=== PATIENT | male | born 1990 | race American Indian/Alaskan Native ===

== ENCOUNTER 2017-02-02 03:49 | Emergency (ER) | payer OTHER ==
[2017-02-02 05:05] LABS: Basophils % (Auto) 0.4 % (0.0-1.8); Eosinophils % (Auto) 0.5 % (0.0-4.3); Hemoglobin 14.5 gm/dl (11.8-15.2); Mean Corpuscular HGB Conc 32 % (32-34); Mean Corpuscular Volume 76 fl (84-94); Platelet Count 252 K/mm3 (140-440); Red Blood Count 6.05 M/mm3 (3.65-5.03); Red Cell Distribution Width 13.8 % (13.2-15.2); White Blood Count 10.7 K/mm3 (4.5-11.0)
[2017-02-02 05:11] LABS: Mean Corpuscular Hemoglobin 24 pg (28-32)
[2017-02-02 05:24] LABS: Anion Gap 17 mmol/L; BUN/Creatinine Ratio 8.88; Blood Urea Nitrogen 8 mg/dL (9-20); Calcium 9.3 mg/dL (8.4-10.2); Carbon Dioxide 28 mmol/L (22-30); Chloride 103.4 mmol/L (98-107); Glucose 84 mg/dL (75-100); Potassium 4.1 mmol/L (3.6-5.0); Sodium 144 mmol/L (137-145)
[2017-02-02] MEDS ORDERED: ZITHROMAX PO ONE (12:54)
[2017-02-02] MEDS ORDERED: XYLOCAINE 1% MPF 5 mL INFILTRATI ONE (12:54)
[2017-02-02] MEDS ORDERED: ROCEPHIN IM ONE (12:54)
--- NOTE | 2017-02-02 13:00 | Emergency Department Report ---
HPI - General Chief Complaint: Chest Pain Time Seen by Provider: 02/02/17 11:56 - HPI HPI: Room 8 The patient is a 26-year-old male presenting with a chief complaint of chest pain. The patient states his symptoms began this morning when he awakened. The patient states the pain was sharp in nature and located in his left chest. Patient doesn't pleurisy. Patient states he developed cough this morning spent productive of green sputum. Patient admits to subjective fever. Patient denies sick contacts. As I begin to leave the room after the interview the patient mentions that he was informed that his sexual partner was positive for chlamydia. Patient states he had contact with partner approximately 1-2 weeks ago and she notified him of the findings. The patient is asymptomatic Location: [see above] Duration: [see above] Quality: Sharp Severity: Moderate Modifying factors: [see above] Context: [see above] Mode of transportation: Unknown ED Past Medical Hx - Past Medical History Previous Medical History?: No - Surgical History Past Surgical History?: No - Family History Family history: no significant - Social History Smoking Status: Never Smoker Substance Use Type: None (denies illicit drug use), Alcohol - Medications Home Medications: Home Medications Medication Instructions Recorded Confirmed Last Taken Type Ibuprofen [Motrin 800 MG tab] 800 mg PO Q8HR PRN #20 tablet 02/02/17 Unknown Rx ED Review of Systems ROS: Stated complaint: LYLE Other details as noted in HPI Comment: All other systems reviewed and negative Constitutional: fever. denies: chills Eyes: denies: eye pain, eye discharge, vision change ENT: denies: ear pain, throat pain Respiratory: cough Cardiovascular: chest pain Endocrine: no symptoms reported Gastrointestinal: denies: abdominal pain, nausea, diarrhea Genitourinary: denies: urgency, dysuria Musculoskeletal: denies: back pain, joint swelling, arthralgia Skin: denies: rash, lesions Neurological: denies: headache, weakness, paresthesias Psychiatric: denies: anxiety, depression Hematological/Lymphatic: denies: easy bleeding, easy bruising Physical Exam - Physical Exam Vital Signs: Vital Signs 02/02/17 02/02/17 04:43 10:32 Temperature 98.6 F Pulse Rate 90 70 Respiratory 20 16 Rate Blood Pressure 148/73 Blood Pressure 129/78 [Left] O2 Sat by Pulse 100 100 Oximetry Physical Exam: GENERAL: The patient is well-developed well-nourished male lying on stretcher not appearing to be in acute distress. [] HEENT: Normocephalic. Atraumatic. Extraocular motions are intact. Patient has moist mucous membranes. NECK: Supple. Trachea midline CHEST/LUNGS: Clear to auscultation. There is no respiratory distress noted. HEART/CARDIOVASCULAR: Regular. There is no tachycardia. There is no gallop rub or murmur. ABDOMEN: Abdomen is soft, nontender. Patient has normal bowel sounds. There is no abdominal distention. SKIN: There is no rash. There is no edema. There is no diaphoresis. NEURO: The patient is awake, alert, and oriented. The patient is cooperative. The patient has normal speech and gait. MUSCULOSKELETAL: There is no evidence of acute injury. ED Course Vital Signs 02/02/17 02/02/17 04:43 10:32 Temperature 98.6 F Pulse Rate 90 70 Respiratory 20 16 Rate Blood Pressure 148/73 Blood Pressure 129/78 [Left] O2 Sat by Pulse 100 100 Oximetry ED Medical Decision Making - Lab Data Result diagrams: 02/02/17 04:53 02/02/17 04:53 Laboratory Tests 02/02/17 02/02/17 02/02/17 04:53 04:53 07:43 WBC 10.7 RBC 6.05 H Hgb 14.5 Hct 46.0 H MCV 76 L MCH 24 L MCHC 32 RDW 13.8 Plt Count 252 Lymph % (Auto) 17.3 Gray % (Auto) 10.2 H Eos % (Auto) 0.5 Baso % (Auto) 0.4 Lymph # 1.8 Gray # 1.1 H Eos # 0.1 Baso # 0.0 Seg Neutrophils % 71.6 H Seg Neutrophils # 7.6 D-Dimer Sodium 144 Potassium 4.1 Chloride 103.4 Carbon Dioxide 28 Anion Gap 17 BUN 8 L Creatinine 0.9 Estimated GFR > 60 BUN/Creatinine Ratio 8.88 Glucose 84 Calcium 9.3 Troponin T < 0.010 < 0.010 02/02/17 02/02/17 10:36 12:54 WBC RBC Hgb Hct MCV MCH MCHC RDW Plt Count Lymph % (Auto) Gray % (Auto) Eos % (Auto) Baso % (Auto) Lymph # Gray # Eos # Baso # Seg Neutrophils % Seg Neutrophils # D-Dimer 145.36 Sodium Potassium Chloride Carbon Dioxide Anion Gap BUN Creatinine Estimated GFR BUN/Creatinine Ratio Glucose Calcium Troponin T < 0.010 - EKG Data -: EKG Interpreted by Me EKG shows normal: sinus rhythm Rate: normal - EKG Data When compared to previous EKG there are: previous EKG unavailable Interpretation: nonspecific ST-T wave ken (T-wave inversion in lead 3) - Radiology Data Radiology results: report reviewed (chest x-ray), image reviewed (chest x-ray) interpreted by me: Chest x-ray-no focal infiltrates, no pneumothorax - Differential Diagnosis PE, bronchitis, pneumonia Critical care attestation.: If time is entered above; I have spent that time in minutes in the direct care of this critically ill patient, excluding procedure time. ED Disposition Clinical Impression: Atypical chest pain, Exposure to chlamydia Disposition: DISCHARGED TO HOME OR SELFCARE Is pt being admited?: No Does the pt Need Aspirin: No Condition: Stable Instructions: Chest Pain (ED), Chronic Bronchitis (ED) Additional Instructions: Return to the emergency department immediately should you develop worsening symptoms, fever, inability to tolerate food or liquid or any other concerns. Prescriptions: Ibuprofen [Motrin 800 MG tab] 800 mg PO Q8HR PRN #20 tablet PRN Reason: Pain Referrals: PRIMARY CARE, [Primary Care Provider] - 3-5 Days Time of Disposition: 13:51
--- NOTE | 2017-02-02 14:13 | XRay Report ---
CHEST 2 VIEWS INDICATION: Sharp chest pain since last night. COMPARISON: None similar at this institution. FINDINGS: PA and lateral chest radiographs demonstrate normal cardiomediastinal silhouette. Clear lungs. Slight thoracic levocurvature. CONCLUSION: No acute disease in the chest. Thank you for the opportunity to participate in this patient's care.
[2017-02-02 14:37] VITALS: BP 130/74
== END 2017-02-02 14:36 | disposition home or self-care (01) ==
LOC: ED 03:49
DX: R07.89 Other chest pain (principal); Z20.2 Contact with and (suspected) exposure to infections with a predominantly sexual mode of transmission
CPT/HCPCS: 36415; 71020; 80048; 84484; 85025; 85379; 93005; 93010; 96372; 99285; J0696